=== PATIENT | female | born 1940 | race Caucasian/White ===

== ENCOUNTER → 2017-02-18 | Outpatient (CLI) | payer OTHER ==
--- NOTE | 2017-02-18 11:14 | DI ---
RIGHT SHOULDER, 02/18/2017 10:16 AM: Clinical History: Right arm pain. Previous Exam: None at this facility. 3 views are submitted. There is no acute soft tissue, osseous, or joint abnormality. 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 The visualized portions of the right lung are normal. The apex is not completely visualized. Reading: Normal right shoulder exam.
--- NOTE | 2017-02-19 11:19 | DI ---
CERVICAL SPINE SERIES, 02/18/2017 10:16 AM: Clinical History: Right-sided neck pain. Previous Exam: None at this facility. 3 upright views are submitted. The vertebral bodies are normal in height and size. There is disc spac e narrowing at C4-5 through C6-7. The C7-T1 disc space is not well visualized. There is anterior subl uxation of C4 on C5 by approximately 3 mm. C1 articulates normally with C2 and the occiput. Preverteb ral soft tissue planes are normal. Reading: There is disc space narrowing from C4-5 through C6-7 with anterior subluxation of C4 on C5 by 3 mm.
== END ==
LOC: MOB RAD 10:22
PROVIDERS: ATTEND Family Medicine
DX: M54.2 Cervicalgia (principal); M79.601 Pain in right arm; H92.01 Otalgia, right ear; I10 Essential (primary) hypertension; E11.9 Type 2 diabetes mellitus without complications; M48.02 Spinal stenosis, cervical region; Z96.621 Presence of right artificial elbow joint; W19.XXXA Unspecified fall, initial encounter
CPT/HCPCS: 72040; 73030; 99214; G0463

== ENCOUNTER → 2017-02-19 | Outpatient (CLI) | payer OTHER ==
[2017-02-19 08:51] LABS: BASOPHILS # (AUTO) 0.08 10*3/UL; BASOPHILS % (AUTO) 1.1 % (0-1); EOSINOPHILS # (AUTO) 0.24 10*3/UL; EOSINOPHILS % (AUTO) 3.4 % (0-8); HEMATOCRIT 44.7 % (37.0-47.0); HEMOGLOBIN 15.1 g/dL (12.0-16.0); LYMPHOCYTES # (AUTO) 1.95 10*3/uL; MEAN CORPUSCULAR HEMOGLOBIN 29.7 PG (27-31); MEAN CORPUSCULAR HGB CONC 33.8 g/dL (33-37); MEAN PLATELET VOLUME 11.6 FL (7.4-12.2); MONOCYTES # (AUTO) 0.45 10*3/UL (0.3-0.8); MONOCYTES % (AUTO) 6.4 % (5-15); NEUTROPHILS # (AUTO) 4.33 10*3/UL; NEUTROPHILS % (AUTO) 61.4 % (50-80); RED BLOOD COUNT 5.08 10^6/uL (4.20-5.40)
[2017-02-19 08:52] LABS: PLATELET MORPHOLOGY COMMENT NORMAL MORPHOLOGY (NORM); RBC MORPHOLOGY COMMENT NORMAL MORPHOLOGY (NORM); WBC MORPHOLOGY COMMENT NORMAL MORPHOLOGY (NORM)
[2017-02-19 09:00] LABS: BUN/CREATININE RATIO 22.85 (6-20); CALCIUM 9.5 mg/dL (8.7-10.7); CHOL/HDL RATIO 3.18 RATIO (0-4.0); LDL CHOLESTEROL,CALCULATED 146.8 mg/dL; SERUM ALBUMIN 4.1 g/dL (3.5-4.8)
[2017-02-19 09:04] LABS: HEMOGLOBIN A1C 10.13 % (4.2-6.0)
[2017-02-19 10:24] LABS: FREE T4 (FREE THYROXINE) 0.99 ng/dL (0.93-1.71)
== END ==
LOC: LAB 08:34
PROVIDERS: ATTEND Family Medicine
DX: I10 Essential (primary) hypertension (principal); E11.9 Type 2 diabetes mellitus without complications; M79.601 Pain in right arm
CPT/HCPCS: 36415; 80053; 80061; 83036; 84439; 84443; 85025

== ENCOUNTER → 2017-02-28 | Outpatient (CLI) | payer OTHER | LOC: MMPC 10:00 | PROVIDERS: ATTEND Orthopaedic Surgery | DX: M75.41 Impingement syndrome of right shoulder (principal); M19.011 Primary osteoarthritis, right shoulder; M50.322 Other cervical disc degeneration at C5-C6 level; M50.323 Other cervical disc degeneration at C6-C7 level | CPT/HCPCS: 99203; G0463 ==

== ENCOUNTER → 2017-03-04 | Outpatient (CLI) | payer OTHER ==
--- NOTE | 2017-03-04 14:51 | DI ---
MRI RIGHT SHOULDER SCAN, 03/04/2017 12:48 PM: Clinical History: Subacromial impingement of the right shoulder. Previous Exam: None at this facility. Technique: Axial, coronal, and sagittal fat saturated PD; axial gradient FE; coronal fat saturatedT2 weighted; sagittal T2 weighted. There is no soft tissue edema or joint effusion. 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 There is a bursal surface partial-thickness tear of the timmons praspinatus tendon anteriorly near the attachment to the humeral head that measures 5 mm in transvers e dimension by approximately 7 mm in AP measurement. Tendinosis of the infraspinatus tendon is presen t. There is a type II SLAP tear and the inferior labrum is normal. The IGHL complex is unremarkable. Sagittal scans show a type II acromion. There is tendinosis of the tendon of the long head of the bic eps muscle in the rotator interval. The teres minor and subscapularis tendons are intact. No muscle a trophy is present. Axial scans show normal anterior and posterior labral cartilage but there is marke d hypointensity present in the articular cartilage of the glenoid fossa suggesting chondrocalcinosis. Readin. There is a bursal surface partial-thickness tear measuring 5 x 7 mm in transverse and AP dimensio ns involving the supraspinatus tendon anteriorly. There is infraspinatus tendinosis with tendinosis o f the tendon of the long head of the biceps muscle in the rotator interval. A type II SLAP tear is pr esent. 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 2. The subscapularis and teres minor tendons are normal. There is a type II acromion. There is no mu scle atrophy or fatty infiltration.
== END ==
LOC: MRI 12:44
PROVIDERS: ATTEND Orthopaedic Surgery
DX: M75.41 Impingement syndrome of right shoulder (principal); S46.811A Strain of other muscles, fascia and tendons at shoulder and upper arm level, right arm, initial encounter; S43.431A Superior glenoid labrum lesion of right shoulder, initial encounter; M19.011 Primary osteoarthritis, right shoulder
CPT/HCPCS: 73221

== ENCOUNTER → 2017-03-07 | Outpatient (CLI) | payer OTHER | LOC: MMPC 10:00 | PROVIDERS: ATTEND Orthopaedic Surgery | DX: M75.41 Impingement syndrome of right shoulder (principal); M19.011 Primary osteoarthritis, right shoulder; M75.101 Unspecified rotator cuff tear or rupture of right shoulder, not specified as traumatic | CPT/HCPCS: 99213; G0463 ==

== ENCOUNTER → 2017-04-04 | Outpatient (CLI) | payer OTHER | LOC: MMPC 10:00 | PROVIDERS: ATTEND Orthopaedic Surgery | DX: M75.101 Unspecified rotator cuff tear or rupture of right shoulder, not specified as traumatic (principal); M75.41 Impingement syndrome of right shoulder; M19.011 Primary osteoarthritis, right shoulder | CPT/HCPCS: 99213; G0463 ==